=== PATIENT | male | born 1985 | race American Indian/Alaskan Native ===

== ENCOUNTER 2017-11-16 21:39 | Emergency (ER) | payer OTHER ==
[2017-11-16 21:51] VITALS: TEMP 98.3
--- NOTE | 2017-11-16 22:20 | C.PDOC ---
History Of Present Illness 32 y/o M p/w multiple complaints. Patient states that for weeks to month, he has been having head pressure intermittently, which he has had before but never this recurringly. He also reports a tooth that he recently had pulled. He states he has had sore throat for weeks. He states he felt a little lightheaded today, no syncope. Denies fever, chills, chest pain, dyspnea, vomiting, diarrhea , motor weakness, numbness. Time Seen by Provider: 11/16/17 22:08 Chief Complaint (Nursing): Headache Past Medical History Vital Signs: Last Vital Signs Temp 98.3 F 11/16/17 21:48 Pulse 83 11/16/17 21:48 Resp 20 11/16/17 21:48 BP 143/94 H 11/16/17 21:48 Pulse Ox 95 11/16/17 22:23 - Medical History PMH: Pneumonia Denies: Chronic Kidney Disease Family History: States: Unknown Family Hx - Social History Hx Alcohol Use: Yes (BINGE DRINKER) Hx Substance Use: No - Immunization History Hx Tetanus Toxoid Vaccination: No Hx Influenza Vaccination: No Hx Pneumococcal Vaccination: No Review Of Systems Except As Marked, All Systems Reviewed And Found Negative. Constitutional: Negative for: Fever Cardiovascular: Negative for: Chest Pain Physical Exam - Physical Exam Additional Physical Exam Comments: Constitutional: No acute distress. Head: Normocephalic. Atraumatic. No sinus tenderness. Eyes: PERRL. ENT: Moist mucous membranes. No pharyngeal erythema or exudates. Neck: Supple. No neck stiffness. Cardiovascular: Regular rate. Radial pulse 2+ bilaterally. Chest: No tenderness. Respiratory: Clear to auscultation bilaterally. GI: Soft. Nontender. Nondistended. Back: No CVA tenderness. Musculoskeletal: No tenderness or swelling of extremities. Skin: No rash. Neurologic: Alert, no focal deficit. ED Course And Treatment - Laboratory Results Result Diagrams: 11/16/17 22:52 11/16/17 22:52 O2 Sat by Pulse Oximetry: 95 Medical Decision Making Medical Decision Making: Offered patient Head CT but due to radiation risk, patient refused and states he would rather follow up for MRI imaging. CXR no acute disease. Labs unremarkable. Discharged home, f/u primary care, return to ED for worsening pain, fever, vomiting, dyspnea, or any other problem. Disposition - Disposition Disposition: HOME/ ROUTINE Disposition Time: 23:18 Condition: STABLE Instructions: Headache, Adult Forms: [facility] [employer] [facility] (Palestinian) - Clinical Impression Clinical Impression: Headache, Sore throat
[2017-11-16 22:59] LABS: BASO # 0.1 K/uL (0.0-0.2); BASO % 0.8 % (0.0-2.0); EOS # 0.3 K/uL (0.0-0.7); EOS % 2.5 % (0.0-4.0); HEMOGLOBIN 15.3 g/dL (12.0-18.0); LYMPH # 2.4 K/uL (1.0-4.3); LYMPH % 23.2 % (20.0-40.0); MEAN CELL VOLUME 93.5 fL (80.0-94.0); MEAN CORPUSCULAR HEMOGLOBIN 31.9 pg (27.0-31.0); MEAN CORPUSCULAR HGB CONC 34.1 g/dL (33.0-37.0); MONO # 0.9 K/uL (0.0-0.8); NEUT # 6.7 K/uL (1.8-7.0); NEUT % 64.5 % (50.0-75.0); NRBC % 0.1 % (0.0-2.0); RBC 4.8 Mil/uL (4.40-5.90); RED CELL DISTRIBUTION WIDTH 13.3 % (11.5-14.5); WHITE BLOOD COUNT 10.5 K/uL (4.8-10.8)
[2017-11-16 23:16] LABS: ALB/GLOB RATIO 1.6 (1.0-2.1); ALBUMIN 4.5 g/dL (3.5-5.0); ALT/SGPT 40 U/L (21-72); AST/SGOT 54 U/L (17-59); BLOOD UREA NITROGEN 8 mg/dL (9-20); CALCIUM 9.1 mg/dl (8.6-10.4); GFR NON-AFRICAN AMERICAN > 60; LIPASE 82 U/L (23-300)
[2017-11-16 23:25] VITALS: BP 144/82; PULSE 67; RESP 16; O2SAT 99
--- NOTE | 2017-11-17 08:32 | RAD ---
Chest x-ray two views History: Lightheaded. Comparison: None available. Findings: No focal infiltrate or effusion. Heart size within normal limits. Impression: No focal infiltrate or effusion.
== END 2017-11-16 23:33 | disposition home or self-care (01) ==
LOC: C.ER 21:39
DX: J02.9 Acute pharyngitis, unspecified (principal); R51 Headache

== ENCOUNTER 2018-04-26 03:44 | Emergency (ER) | payer SELFPAY ==
[2018-04-26 04:30] LABS: BASO # 0.1 K/uL (0.0-0.2); BASO % 0.8 % (0.0-2.0); EOS # 0.2 K/uL (0.0-0.7); EOS % 2.1 % (0.0-4.0); HEMOGLOBIN 16.4 g/dL (12.0-18.0); LYMPH # 3.8 K/uL (1.0-4.3); LYMPH % 34.3 % (20.0-40.0); MEAN CELL VOLUME 95.6 fL (80.0-94.0); MEAN CORPUSCULAR HEMOGLOBIN 32.1 pg (27.0-31.0); MEAN CORPUSCULAR HGB CONC 33.6 g/dL (33.0-37.0); MEAN PLATELET VOLUME 11.4 fL (7.2-11.7); MONO # 0.9 K/uL (0.0-0.8); MONO % 7.9 % (0.0-10.0); NEUT # 6.1 K/uL (1.8-7.0); NEUT % 54.9 % (50.0-75.0); NRBC % 0.1 % (0.0-2.0); RBC 5.11 Mil/uL (4.40-5.90); RED CELL DISTRIBUTION WIDTH 13.1 % (11.5-14.5); WHITE BLOOD COUNT 11.1 K/uL (4.8-10.8)
[2018-04-26 04:34] LABS: SQUAMOUS EPITHIAL < 1 /hpf (0-5); URINE BACTERIA RARE (<OCC); URINE BILIRUBIN NEGATIVE (NEGATIVE); URINE BLOOD NEGATIVE (NEGATIVE); URINE CLARITY Clear (Clear); URINE COLOR Yellow (YELLOW); URINE GLUCOSE (UA) NORMAL (Normal); URINE LEUKOCYTE ESTERASE NEG Leu/uL (Negative); URINE PROTEIN NEGATIVE (NEGATIVE); URINE UROBILINOGEN NORMAL mg/dL (0.2-1.0)
[2018-04-26 04:41] LABS: ALB/GLOB RATIO 1.5 (1.0-2.1); ALBUMIN 5.3 g/dL (3.5-5.0); ALT/SGPT 10 U/L (21-72); AST/SGOT 28 U/L (17-59); BLOOD UREA NITROGEN 12 mg/dL (9-20); CALCIUM 9.8 mg/dl (8.6-10.4); GFR NON-AFRICAN AMERICAN > 60; LIPASE 102 U/L (23-300)
--- NOTE | 2018-04-26 04:42 | C.PDOC ---
History Of Present Illness 33-year-old male presents to the ED for evaluation of left-sided lower back pain which had been present intermittently over the past few days, but worsened and became constant while he was trying to sleep tonight. Patient states his pain is worse with movement and non-radiating. pt rpeorts he has been back in the gym again. He denies fever, chills, nausea, vomiting, diarrhea, abdominal, urinary/bowel incontinence, numbness/tingling to extremities, recent injuries or falls. Time Seen by Provider: 04/26/18 03:55 Chief Complaint (Nursing): Back Pain History Per: Patient History/Exam Limitations: no limitations Onset/Duration Of Symptoms: Hrs, Intermittent Episodes Current Symptoms Are (Timing): Worse Quality Of Discomfort: "Pain" Previous Symptoms: Back Pain Associated Symptoms: denies: New Weakness, New Numbness Exacerbating Factor(s): Movement Past Medical History Reviewed: Historical Data, Nursing Documentation, Vital Signs Vital Signs: Last Vital Signs Temp 97.8 F 04/26/18 03:53 Pulse 95 H 04/26/18 03:53 Resp 18 04/26/18 03:53 BP 151/95 H 04/26/18 03:53 Pulse Ox 98 04/26/18 03:53 - Medical History PMH: Pneumonia Denies: Chronic Kidney Disease Surgical History: No Surg Hx Family History: States: Unknown Family Hx - Social History Hx Alcohol Use: Yes (BINGE DRINKER) Hx Substance Use: No - Immunization History Hx Tetanus Toxoid Vaccination: No Hx Influenza Vaccination: No Hx Pneumococcal Vaccination: No Review Of Systems Constitutional: Negative for: Fever, Chills Gastrointestinal: Negative for: Nausea, Vomiting, Abdominal Pain, Diarrhea Genitourinary: Negative for: Incontinence Musculoskeletal: Positive for: Back Pain (left-sided, lower ) Neurological: Negative for: Weakness, Numbness Physical Exam - Physical Exam Appears: Non-toxic, No Acute Distress, In Acute Distress (from pain), Other (obese ) Skin: Normal Color, Warm, Dry Head: Atraumatic, Normacephalic Eye(s): bilateral: Normal Inspection Oral Mucosa: Moist Neck: Supple Chest: Symmetrical, No Deformity, No Tenderness Cardiovascular: Rhythm Regular, No Murmur Respiratory: Normal Breath Sounds, No Rales, No Rhonchi, No Wheezing Gastrointestinal/Abdominal: Bowel Sounds, Soft, No Tenderness, No Mass (pulsatile ), No Distention, No Guarding, No Rebound Back: No CVA Tenderness, No Vertebral Tenderness, No Straight Leg Raising, Other (left lateral lumbar tenderness. no sciatic notch tenderness ) Extremity: Normal ROM, No Pedal Edema, No Calf Tenderness, Capillary Refill (less than 2 seconds ) Neurological/Psych: Oriented x3, Normal Speech, Normal Cognition, Normal Motor, Normal Sensation Gait: Steady ED Course And Treatment - Laboratory Results Result Diagrams: 04/26/18 04:26 04/26/18 04:26 Lab Results: Urine Color Yellow (YELLOW) 04/26/18 04:26 Urine Clarity Clear (Clear) 04/26/18 04:26 Urine pH 5.0 (5.0-8.0) 04/26/18 04:26 Ur Specific [place] 1.012 (1.003-1.030) 04/26/18 04:26 Urine Protein Negative mg/dL (NEGATIVE) 04/26/18 04:26 Urine Glucose (UA) Normal mg/dL (Normal) 04/26/18 04:26 Urine Ketones Negative mg/dL (NEGATIVE) 04/26/18 04:26 Urine Blood Negative (NEGATIVE) 04/26/18 04:26 Urine Nitrate Negative (NEGATIVE) 04/26/18 04:26 Urine Bilirubin Negative (NEGATIVE) 04/26/18 04:26 Urine Urobilinogen Normal mg/dL (0.2-1.0) 04/26/18 04:26 Ur Leukocyte Esterase Neg Mariaelena/uL (Negative) 04/26/18 04:26 Urine WBC (Auto) < 1 /hpf (0-5) 04/26/18 04:26 Urine RBC (Auto) < 1 /hpf (0-3) 04/26/18 04:26 Ur Squamous Epith Cells < 1 /hpf (0-5) 04/26/18 04:26 Urine Bacteria Rare (<OCC) 04/26/18 04:26 O2 Sat by Pulse Oximetry: 98 (on RA) Pulse Ox Interpretation: Normal Medical Decision Making Medical Decision Making: Impression: left-sided lower back pain Plan: * bloodwork * urinalysis * CT A/P * Toradol IVP * Valium IVP * reassess and disposition Progress: Patient appears to experience more pain and discomfort with movement, likely indicating symptoms may be musculoskeletal. Bloodwork, urinalysis, CT A/P ordered and reviewed. Valium IVP and Toradol IVP given. 0700 pt feeling better, non tender to palpation on left lower back. ct results discussed with pt. pt advised touse miralax, increase fiber and water intake, muscle relaxant and naproxen for pain, will apply lidoderm patch prior to discharge. advised no gym until feeling better. Disposition Counseled Patient/Family Regarding: Studies Performed, Diagnosis, Need For Followup, Rx Given - Disposition Referrals: Daniel Huggins MD [Staff Provider] - Disposition: HOME/ ROUTINE Disposition Time: 07:10 Condition: IMPROVED Additional Instructions: Drink increased fluids and increase fiber in diet. Use Miralax daily until stool is soft. Drink prune juice. Take Naproxen every 12 hours. Take muscle relaxant every 8 hours. may make you sleepy, no driving or operating machinery. Follow up with Dr Huggins in 1-2 days. No gym until feeling better. Take off patch in 12 hours. Return to ER for any worse symptoms. Prescriptions: Cyclobenzaprine [Cyclobenzaprine HCl] 10 mg PO Q8 #9 tab Naproxen 500 mg PO BID #30 tab Forms: [facility] (Slovak), General Discharge Instructions - Clinical Impression Clinical Impression: Muscle spasm, Constipation - PA / [employer] AGENT / Resident Statement MD/DO has reviewed & agrees with the documentation as recorded. - Scribe Statement The provider has reviewed the documentation as recorded by the Scribe (Dina Reddy) All medical record entries made by the Scribe were at my direction and personally dictated by me. I have reviewed the chart and agree that the record accurately reflects my personal performance of the history, physical exam, medical decision making, and the department course for this patient. I have also personally directed, reviewed, and agree with the discharge instructions and disposition.
[2018-04-26] MEDS ORDERED: diaZEpam 10 mg/2 ml Inj IVP ONE (05:05)
[2018-04-26 05:55] VITALS: BP 121/58; PULSE 83; RESP 20; TEMP 97.7
[2018-04-26 07:08] VITALS: O2SAT 98
[2018-04-26] MEDS ORDERED: Lidocaine 5% Patch TD STA (07:08)
[2018-04-26] MEDS ORDERED: Lidocaine 5% Patch TD ONE (07:11)
--- NOTE | 2018-04-26 09:45 | CT ---
CT abdomen and pelvis HISTORY: Left flank pain. COMPARISON: None. TECHNIQUE: Multiple contiguous axial images were performed through the abdomen and pelvis without the use of intravenous contrast. Subsequently, sagittal and coronal reformatted images were obtained. This CT exam was performed using one or more of the following dose reduction techniques: Automated exposure control, adjustment of the mA and/or kV according to patient size, and/or use of iterative reconstruction technique. Findings: Mild scattered emphysematous changes within the lung bases. No pleural or pericardial effusion. Mild fatty infiltration of the liver. Gallbladder is preserved. Mildly prominent spleen. Adrenal glands are preserved. Mild fatty atrophy of the pancreas. Upper abdominal bowel is grossly preserved. Right kidney: No calculi or hydronephrosis. Left Kidney: No calculi or hydronephrosis. Mild diffuse thickening of the urinary bladder. Clinical correlation. Few scattered calcifications at the level of the prostate. Mild underdistention and or thickening of the rectum. Under distended descending colon. Colonic diverticulosis. Fecal retention in the right maria r and transverse colon. Appendix is preserved. Few shotty para-aortic and inguinal lymph nodes. Few shotty mesenteric lymph nodes. Degenerative changes in the spine. Degenerative changes in the bilateral SI joints. Impression: 1. Mild underdistention and or thickening of the rectum. Under distended descending colon. Fecal retention in the right maria r and transverse colon. Colonic diverticulosis. Clinical correlation. 2. Mild fatty infiltration of the liver. 3. Mildly prominent spleen. 4. Few scattered calcifications at the level of the prostate. 5. Mild fatty atrophy of the pancreas. 6. Mild diffuse thickening of the urinary bladder. Clinical correlation. Additional findings as above. A preliminary report was generated at 6:26 a.m. on 04/26/[address] Milena Johnson from [facility].
== END 2018-04-26 07:20 | disposition home or self-care (01) ==
LOC: C.ER 03:44
DX: K59.00 Constipation, unspecified (principal); M62.838 Other muscle spasm
CPT/HCPCS: 74176; 80053; 81001; 83690; 85025; 96374; 96375; 99284; J1885; J3360